=== PATIENT | male | born 1995 | race Caucasian/White ===

== ENCOUNTER 2021-11-10 20:31 | Emergency (ER) | payer SELFPAY ==
[~2021-11-10] VITALS: Ht 167.6 cm; Wt 67.1 kg
--- NOTE | 2021-11-10 21:00 | NUR ---
BIBS FOR C/O L SIDED CHEST PRESSURE, SOB, NAUSEA AND HIGH HEART RATE X 1 HR. AMBULATORY, AAOX4, PLACED ON BED, ATTACHED TO MONITOR- SINUS RHYTYM, SATURATING AT 98%RA.
--- NOTE | 2021-11-10 21:15 | NUR ---
AT BED SIDE
--- NOTE | 2021-11-10 21:27 | NUR ---
X-RAY TECH. AT BED SIDE
--- NOTE | 2021-11-10 21:31 | NUR ---
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
[2021-11-10 21:46] LABS: BASOPHILS % (AUTO) 0.8 % (0.0-2.0); HEMATOCRIT 42 % (39-51); HEMOGLOBIN 14.5 g/dL (13.5-17.5); LYMPHOCYTES # (AUTO) 1.1 K/uL (0.8-4.8); LYMPHOCYTES % (AUTO) 23.1 % (20.0-44.0); MEAN CORPUSCULAR HGB CONC 35 g/dl (31.0-36.0); MEAN CORPUSCULAR VOLUME 82 fL (80-96); MONOCYTES # (AUTO) 0.3 K/uL (0.1-1.30); MONOCYTES % (AUTO) 6.5 % (2.0-12.0); NEUTROPHILS # (AUTO) 3.3 K/uL (1.8-8.9); NEUTROPHILS % (AUTO) 68.6 % (43.0-81.0); PLATELET COUNT (AUTO) 187 K/uL (150-450); RED BLOOD CELL COUNT(AUTO) 5.09 MIL/uL (4.5-6.0); WHITE BLOOD COUNT (AUTO) 4.9 K/uL (4.3-11.0)
[2021-11-10 21:55] LABS: CALCIUM, SERUM 8.9 mg/dL (8.5-10.1); CARBON DIOXIDE 29 mmol/L (21-32); CHLORIDE 103 mmol/L (98-107); CREATININE 1.1 mg/dL (0.6-1.3); GLUCOSE 112 mg/dL (74-106); POTASSIUM 3.7 mmol/L (3.5-5.1); SODIUM SERUM 139 mmol/L (136-145); UREA NITROGEN, BLOOD 19 mg/dL (7-18)
--- NOTE | 2021-11-10 23:00 | NUR ---
Note undone in ED - 11/10/21 at 2306 by AARON IV removed. Catheter intact and site benign. Pressure and 4x4 applied to site. No bleeding noted.
--- NOTE | 2021-11-10 23:00 | NUR ---
Patient discharged to home in stable condition. Written and verbal after care instructions given. Patient verbalizes understanding of instruction.
[2021-11-10 23:07] VITALS: BP 140/70
== END 2021-11-10 23:00 | disposition home or self-care (01) ==
LOC: ER 20:34
DX: R00.2 Palpitations (principal)
CPT/HCPCS: 36415; 71045-TC; 80048-TC; 84484-TC; 85025-TC; 85378-TC